=== PATIENT | male | born 2000 | race Caucasian/White ===

== ENCOUNTER → 2023-01-21 | Outpatient (CLI) | payer BC ==
[2023-01-21 13:39] LABS: BASO % 0.7 % (0.0-1.0); EOS # 0.3 10*3/uL (0.0-0.4); EOS % 5.4 % (1.0-4.0); HEMATOCRIT 47.5 % (42.0-52.0); LYMPH # 2.6 10*3/uL (1.3-4.4); MEAN CELL VOLUME 91.2 fl (80.0-94.0); MEAN CORPUSCULAR HGB 29.6 pg (27.0-31.0); MEAN CORPUSCULAR HGB CONC 32.4 g/dl (33.0-37.0); MEAN PLATELET VOLUME 8.8 fl (9.6-12.3); MONO # 0.5 10*3/uL (0.1-1.0); MONO % 8.2 % (3.0-9.0); NEUT # 2.4 10*3/uL (2.3-7.9); NEUT % 41.5 % (47.0-73.0); PLATELET COUNT AUTOMATED 284 10*3/uL (130-400); RED BLOOD COUNT 5.21 10*6/uL (4.50-5.90); RED CELL DISTRI WIDTH 12.4 % (0-14.5); WHITE BLOOD COUNT 5.9 10*3/uL (4.8-10.8)
[2023-01-21 14:02] LABS: ALKALINE PHOSPHATASE 78 U/L (46-116); BUN 13 mg/dl (9-23); CHLORIDE 103 mmol/L (98-107); SGPT/ALT 21 U/L (10-49); TOTAL PROTEIN 7.8 gm/dL (6.0-8.0)
== END | disposition home or self-care (01) ==
LOC: LAB 13:17
PROVIDERS: ATTEND Nurse Practitioner Family
DX: K62.5 Hemorrhage of anus and rectum (principal)

== ENCOUNTER → 2023-01-22 | Outpatient (CLI) | payer BC | END | disposition home or self-care (01) | LOC: LAB 09:45 | PROVIDERS: ATTEND Surgery | DX: K62.5 Hemorrhage of anus and rectum (principal) ==